=== PATIENT | male | born 1990 | race Caucasian/White ===

== ENCOUNTER → 2016-11-24 | Outpatient (REF) | payer BC | LOC: M LAB REF 16:19 | PROVIDERS: ATTEND Physician Assistant | DX: J02.9 Acute pharyngitis, unspecified (principal) ==

== ENCOUNTER 2018-05-13 14:09 | Emergency (ER) | payer OTHER | END 2018-05-13 15:28 | disposition home or self-care (01) | LOC: M ED 14:09 | DX: J20.9 Acute bronchitis, unspecified (principal); F17.210 Nicotine dependence, cigarettes, uncomplicated | CPT/HCPCS: 71046 ==

== ENCOUNTER 2018-05-15 21:48 | Emergency (ER) | payer OTHER | END 2018-05-16 01:45 | disposition left against medical advice (07) | LOC: M ED 21:48 | DX: Z53.21 Procedure and treatment not carried out due to patient leaving prior to being seen by health care provider (principal) ==

== ENCOUNTER 2018-05-16 17:48 | Emergency (ER) | payer OTHER ==
[2018-05-16] MEDS: ALBUTEROL SULFATE 2.5 MG/0.5 ML INH NEB SOLN NEB (17:27)
== END 2018-05-16 18:12 | disposition home or self-care (01) ==
LOC: M ED 17:48
DX: J40 Bronchitis, not specified as acute or chronic (principal)
CPT/HCPCS: 94640

== ENCOUNTER → 2018-07-04 | Outpatient (CLI) | payer OTHER | LOC: M RAD 12:23 | DX: S69.91XA Unspecified injury of right wrist, hand and finger(s), initial encounter (principal); X58.XXXA Exposure to other specified factors, initial encounter; Y92.9 Unspecified place or not applicable | CPT/HCPCS: 73110 ==

== ENCOUNTER 2019-01-23 18:47 | Emergency (ER) | payer OTHER, SELFPAY ==
[~2019-01-23] VITALS: Ht 167.6 cm; Wt 72.7 kg
[~2019-01-23 18:47] MED LIST: PROAAER10 INH; TESS100C PO
[2019-01-23 18:48] VITALS: BP 120/76
== END 2019-01-23 22:16 | disposition left against medical advice (07) ==
LOC: M ED 18:47
DX: Z53.29 Procedure and treatment not carried out because of patient's decision for other reasons (principal)

== ENCOUNTER 2020-02-29 17:18 | Emergency (ER) | payer SELFPAY ==
[~2020-02-29] VITALS: Ht 165.1 cm; Wt 66.4 kg
[2020-02-29] MEDS ORDERED: NS 1,000 ML IV ONE (17:45)
[2020-02-29 18:09] LABS: BASO % 0.5 % (0.0-1.0); EOS # 0.2 10^3/uL (0.0-0.5); EOS % 3.6 % (0.0-3.0); HEMATOCRIT 44.8 % (42.0-52.0); HEMOGLOBIN 14.7 g/dl (13.5-17.5); LYMPH # 1.7 10^3/uL (1.5-5.0); LYMPH % 27.4 % (24.0-44.0); MEAN CORPUSCULAR HEMOGLOBIN 29.8 pg (27.0-33.0); MEAN CORPUSCULAR HGB CONC 32.8 g/dl (32.0-36.5); MEAN CORPUSCULAR VOLUME 90.7 fl (80.0-96.0); MONO # 0.4 10^3/uL (0.0-0.8); MONO % 6.4 % (0.0-5.0); NEUTROPHILS # 3.8 10^3/uL (1.5-8.5); NEUTROPHILS % 61.8 % (36.0-66.0); PLATELET COUNT, AUTOMATED 201 10^3/uL (150-450); RED BLOOD COUNT 4.94 10^6/uL (4.30-6.10); WHITE BLOOD COUNT 6.1 10^3/uL (4.0-10.0)
[2020-02-29] MEDS: GASTROGRAFIN SOLUTION 30ML PO SCH ×2 (18:12→18:56)
[2020-02-29 18:16] LABS: INR 0.98; PROTHROMBIN TIME 12.7 SECONDS (11.8-14.0)
[2020-02-29 18:17] LABS: PARTIAL THROMBOPLASTIN TIME 25.9 SECONDS (25.0-38.4)
[2020-02-29 18:45] LABS: ALBUMIN 4.2 GM/DL (3.2-5.2); BILIRUBIN,DIRECT 0.3 MG/DL (0.0-0.2); BILIRUBIN,TOTAL 1.3 MG/DL (0.2-1.0); TOTAL PROTEIN 7.3 GM/DL (6.4-8.2)
[2020-02-29] MEDS ORDERED: ISOVUE-370 76% 100ML VIAL As Ordered ONE (19:39)
--- NOTE | 2020-02-29 20:03 | REPVR ---
PROCEDURE INFORMATION: Exam: CT Abdomen And Pelvis With Contrast Exam date and time: 02/29/2020 7:42 PM Age: 29 years old Clinical indication: Abdominal pain; Generalized; Additional info: Abd pain with rectal bleeding R/O infectious process TECHNIQUE: Imaging protocol: Computed tomography of the abdomen and pelvis with intravenous contrast. Radiation optimization: All CT scans at this facility use at least one of these dose optimization techniques: automated exposure control; mA and/or kV adjustment per patient size (includes targeted exams where dose is matched to clinical indication); or iterative reconstruction. Contrast material: ISOVUE 370; Contrast volume: 100 ml; Contrast route: INTRAVENOUS (IV); COMPARISON: No relevant prior studies available. FINDINGS: Liver: There is a diffuse decrease in hepatic parenchymal density, consistent with steatosis. Gallbladder and bile ducts: Normal. No calcified stones. No ductal dilation. Pancreas: Normal. No ductal dilation. Spleen: Normal. No splenomegaly. Adrenals: Normal. No mass. Kidneys and ureters: Normal. No hydronephrosis. Stomach and bowel: Short segment luminal constricting lesion at the rectosigmoid junction and another in the distal sigmoid colon may represent a peristaltic wave. Correlation with clinical exam to exclude a neoplasm suggested. Appendix: No evidence of appendicitis. Intraperitoneal space: Unremarkable. No free air. No significant fluid collection. Vasculature: Unremarkable. No abdominal aortic aneurysm. Lymph nodes: Unremarkable. No enlarged lymph nodes. Bladder: Unremarkable as visualized. Reproductive: The prostate gland demonstrates mild hyperplasia. Bones/joints: [id number] central spinal stenosis L4-L5. Soft tissues: Unremarkable. IMPRESSION: 1. There is a diffuse decrease in hepatic parenchymal density, consistent with steatosis. 2. Mild prostatic hyperplasia. 3. Short segment luminal constricting lesion at the rectosigmoid junction and another in the distal sigmoid colon may represent a peristaltic wave. Correlation with clinical exam to exclude a neoplasm suggested. Electronically signed by: Gurmeet Phipps On 02/29/2020 20:03:25 PM
[2020-02-29 20:41] VITALS: BP 108/76
--- NOTE | 2020-03-03 10:05 | ED PDOC ---
Post-Departure Follow-Up dr galan faxed formal report of ct abd/p for fu Osbaldo Baer MD Mar 03, 2020 10:05
== END 2020-02-29 20:43 | disposition home or self-care (01) ==
LOC: M ED 17:18
DX: K62.5 Hemorrhage of anus and rectum (principal); R10.9 Unspecified abdominal pain; Z72.0 Tobacco use
CPT/HCPCS: 36415; 74177; 80047; 80076; 81001; 83690; 85025; 85610; 85730; 96360; 96361; 99284; Q9963; Q9967

== ENCOUNTER → 2020-03-14 | Outpatient (CLI) | payer SELFPAY | LOC: M LABSMTC 13:16 | PROVIDERS: ATTEND Anesthesiology | DX: Z03.818 Encounter for observation for suspected exposure to other biological agents ruled out (principal); Z11.59 Encounter for screening for other viral diseases ==

== ENCOUNTER 2020-03-19 07:53 | Day surgery (SDC) | payer SELFPAY ==
[~2020-03-19] VITALS: Ht 167.6 cm; Wt 63.5 kg
[~2020-03-19 07:53] MED LIST changes: +NS 1,000 ML IV ONE
[2020-03-19] MEDS ORDERED: propofoL 200 MG/20 ML VIAL As Ordered ONE (09:10)
--- NOTE | 2020-03-19 09:26 | ROOR ---
Patient Name: Raudel Alexander Procedure Date: 03/19/2020 9:08 AM Date of : 1990 Age: 29 Room: [facility] Gender: Male Note Status: Finalized Procedure: Colonoscopy Indications: Hematochezia Providers: Juancho Celis DO Referring MD: 1. No Referring Physician 1. No Referring Physician, Admin., Juancho Celis DO Requesting Provider: Medicines: Propofol per Anesthesia Complications: No immediate complications. Procedure: Pre-Anesthesia Assessment: - Prior to the procedure, a History and Physical was performed, and patient medications and allergies were reviewed. The patient is competent. The risks and benefits of the procedure and the sedation options and risks were discussed with the patient. All questions were answered and informed consent was obtained. Patient identification and proposed procedure were verified by the physician, the nurse, the anesthesiologist and the automation technician in the endoscopy suite. Mental Status Examination: alert and oriented. Airway Examination: normal oropharyngeal airway and neck mobility. Respiratory Examination: clear to auscultation. CV Examination: normal. Prophylactic Antibiotics: The patient does not require prophylactic antibiotics. Prior Anticoagulants: The patient has taken no previous anticoagulant or antiplatelet agents. ASA Grade Assessment: II - A patient with mild systemic disease. After reviewing the risks and benefits, the patient was deemed in satisfactory condition to undergo the procedure. The anesthesia plan was to use monitored anesthesia care (MAC). Immediately prior to administration of medications, the patient was re-assessed for adequacy to receive sedatives. The heart rate, respiratory rate, oxygen saturations, blood pressure, adequacy of pulmonary ventilation, and response to care were monitored throughout the procedure. The physical status of the patient was re-assessed after the procedure. The Colonoscope was introduced through the anus and advanced to the cecum, identified by appendiceal orifice and ileocecal valve. The colonoscopy was performed without difficulty. The patient tolerated the procedure well. Findings: Non-bleeding internal hemorrhoids were found during retroflexion. The hemorrhoids were small and Grade I (internal hemorrhoids that do not prolapse). The exam was otherwise without abnormality on direct and retroflexion views. Impression: - Non-bleeding internal hemorrhoids. - The examination was otherwise normal on direct and retroflexion views. - No specimens collected. Recommendation: - Patient has a contact number available for emergencies. The signs and symptoms of potential delayed complications were discussed with the patient. Return to normal activities tomorrow. Written discharge instructions were provided to the patient. - Repeat colonoscopy at age 49 for screening purposes. Juancho Celis DO 03/19/2020 9:26:46 AM Electronically signed by Juancho Celis DO Number of Addenda: 0 Note Initiated On: 03/19/2020 9:08 AM Estimated Blood Loss: Estimated blood loss: none.
[2020-03-19 10:00] VITALS: BP 101/63
== END 2020-03-19 10:18 | disposition home or self-care (01) ==
LOC: M OPP 07:53
PROVIDERS: ATTEND Surgery
DX: K62.5 Hemorrhage of anus and rectum (principal); R10.32 Left lower quadrant pain; F17.218 Nicotine dependence, cigarettes, with other nicotine-induced disorders; F12.10 Cannabis abuse, uncomplicated

== ENCOUNTER 2020-12-27 12:03 | Emergency (ER) | payer SELFPAY ==
[~2020-12-27] VITALS: Ht 165.1 cm; Wt 65.9 kg
[~2020-12-27 12:03] MED LIST changes: -NS 1,000 ML IV ONE
[2020-12-27] MEDS ORDERED: IBUP-1114 PO (12:12)
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
[2020-12-27 14:20] VITALS: BP 107/73
== END 2020-12-27 14:23 | disposition home or self-care (01) ==
LOC: M ED 12:03
DX: R07.81 Pleurodynia (principal); V03.99XA Pedestrian with other conveyance injured in collision with car, pick-up truck or van, unspecified whether traffic or nontraffic accident, initial encounter; Y92.9 Unspecified place or not applicable; Y93.9 Activity, unspecified; Y99.9 Unspecified external cause status; K58.9 Irritable bowel syndrome, unspecified; G50.0 Trigeminal neuralgia; F17.200 Nicotine dependence, unspecified, uncomplicated

== ENCOUNTER 2022-02-19 17:47 | Emergency (ER) | payer SELFPAY ==
[~2022-02-19] VITALS: Ht 162.6 cm; Wt 64.3 kg
[~2022-02-19 17:47] MED LIST changes: +IBUP-1114 PO
[2022-02-19 17:48] VITALS: BP 123/72
[2022-02-19 19:06] LABS: RSV AMPLIFICATION NEGATIVE (NEGATIVE)
== END 2022-02-19 19:08 | disposition left against medical advice (07) ==
LOC: M ED 17:47
DX: Z53.21 Procedure and treatment not carried out due to patient leaving prior to being seen by health care provider (principal)

== ENCOUNTER 2022-06-21 13:47 | Emergency (ER) | payer SELFPAY ==
[~2022-06-21] VITALS: Ht 165.1 cm; Wt 63.4 kg
[2022-06-21 13:48] VITALS: BP 109/71
== END 2022-06-21 16:06 | disposition left against medical advice (07) ==
LOC: M ED 13:47
DX: Z53.21 Procedure and treatment not carried out due to patient leaving prior to being seen by health care provider (principal)

== ENCOUNTER 2022-07-05 15:03 | Emergency (ER) | payer MEDICAID, SELFPAY ==
[~2022-07-05] VITALS: Ht 162.6 cm; Wt 63.3 kg
[2022-07-05 16:27] LABS: BASO % 0.5 % (0.0-1.0); EOS # 0.2 10^3/uL (0.0-0.5); EOS % 3.1 % (0.0-3.0); HEMATOCRIT 47.8 % (42.0-52.0); LYMPH # 2.3 10^3/uL (1.5-5.0); MEAN CORPUSCULAR HEMOGLOBIN 30.6 pg (27.0-33.0); MEAN CORPUSCULAR HGB CONC 33.5 g/dl (32.0-36.5); MEAN CORPUSCULAR VOLUME 91.4 fl (80.0-96.0); MONO # 0.6 10^3/uL (0.0-0.8); MONO % 7.6 % (2.0-8.0); NEUTROPHILS # 4.6 10^3/uL (1.5-8.5); NEUTROPHILS % 59.4 % (36.0-66.0); PLATELET COUNT, AUTOMATED 251 10^3/uL (150-450); RED BLOOD COUNT 5.23 10^6/uL (4.30-6.10); WHITE BLOOD COUNT 7.8 10^3/uL (4.0-10.0)
[2022-07-05 17:11] LABS: ALBUMIN 4.5 GM/DL (3.2-5.2); ALT/SGPT 56 U/L (12-78); BILIRUBIN,DIRECT 0.2 MG/DL (0.0-0.2); BLOOD UREA NITROGEN 19 MG/DL (7-18); CALCIUM LEVEL 9.3 MG/DL (8.5-10.1); CARBON DIOXIDE LEVEL 28 MEQ/L (21-32); CHLORIDE LEVEL 105 MEQ/L (98-107); CREATININE FOR GFR 0.84 MG/DL (0.70-1.30); GLOMERULAR FILTRATION RATE > 60.0 (>60); GLUCOSE, FASTING 97 MG/DL (70-100); LIPASE 91 U/L (73-393); POTASSIUM SERUM 4.6 MEQ/L (3.5-5.1); SODIUM LEVEL 138 MEQ/L (136-145); TOTAL PROTEIN 7.9 GM/DL (6.4-8.2)
[2022-07-05] MEDS ORDERED: ISOVUE-370 76% 100ML VIAL As Ordered ONE (19:01)
[2022-07-05 20:17] VITALS: BP 121/99
== END 2022-07-05 20:19 | disposition home or self-care (01) ==
LOC: M ED 15:03
DX: K62.5 Hemorrhage of anus and rectum (principal); R07.9 Chest pain, unspecified; R30.9 Painful micturition, unspecified; R53.83 Other fatigue; K58.9 Irritable bowel syndrome, unspecified; F17.210 Nicotine dependence, cigarettes, uncomplicated

== ENCOUNTER 2022-07-13 19:11 | Emergency (ER) | payer MEDICAID, SELFPAY ==
[~2022-07-13] VITALS: Ht 162.6 cm; Wt 61.7 kg
[2022-07-13 21:18] VITALS: BP 141/96
== END 2022-07-13 21:19 | disposition home or self-care (01) ==
LOC: M ED 19:11
DX: Z13.30 Encounter for screening examination for mental health and behavioral disorders, unspecified (principal); F32.A Depression, unspecified; F41.9 Anxiety disorder, unspecified; F17.200 Nicotine dependence, unspecified, uncomplicated